=== PATIENT | male | born 1985 | race Hispanic/Latino ===

== ENCOUNTER 2018-04-07 19:34 | Emergency (ER) | payer BC ==
[2018-04-07 19:42] VITALS: BMI 23.7
[2018-04-07 19:45] VITALS: RESP 18
--- NOTE | 2018-04-07 20:11 | ED PDOC ---
Arrival/HPI <Colton Tate - Last Filed: 04/07/18 21:44> - General Historian: Patient <Kandis Linder - Last Filed: 04/07/18 21:45> - General Chief Complaint: Finger,Hand,&Wrist Time Seen by Provider: 04/07/18 19:45 - History of Present Illness Narrative History of Present Illness (Text): 04/07/18 20:04 Pt is a 33 yo M with no significant Pmhx who presents with a crush injury to the left 5th digit that occured about 30 mins ago. Pt states that he was at the EMS station and was exchanging O2 canisters, when one slipped and fell on his left 5th digit. He states that after it fell, he removed his hand from under the O2 canister and saw that his finger was bleeding. He cleaned the wound with normal saline and wrapped it and presented to the Emergency department. He currently states that pain is a 3/10 non-radiating and that the wound has now since stopped bleeding. He is able to move the digit and has no pain proximal to the distal DIP joint on the left 5th finger. He has no numbness proximal to the DIP joint on same finger. Past medical history: None Pshx: None Medications: None Allergies: NKDA Social Hx: No tobacco use or hx, social drinker, no illicit drug use Family Hx: Denies (Kandis Linder) Past Medical History - Psychiatric Hx Substance Use: No - Anesthesia Hx Anesthesia: No <Kandis Linder - Last Filed: 04/07/18 21:45> Family/Social History Family/Social History: No Known Family HX Smoking Status: Never Smoked Hx Alcohol Use: Yes Frequency of alcohol use: Socially Hx Substance Use: No <Kandis Linder - Last Filed: 04/07/18 21:45> Allergies/Home Meds <LeaColton - Last Filed: 04/07/18 21:44> <Kandis Linder - Last Filed: 04/07/18 21:45> Allergies/Adverse Reactions: Allergies No Known Allergies Allergy (Verified 04/07/18 19:42) Home Medications: Home Meds Medication Instructions Recorded Confirmed No Known Home Med 04/07/18 04/07/18 Review of Systems - Physician Review All systems were reviewed & negative as marked: Yes - Review of Systems Constitutional: Normal. absent: Fatigue Respiratory: Normal. absent: Cough, Wheezing Cardiovascular: Normal. absent: Chest Pain, Palpitations Gastrointestinal: Normal. absent: Abdominal Pain, Stool Changes, Constipation Musculoskeletal: Normal Skin: Laceration Neurological: Normal Psychiatric: Normal <Kandis Linder - Last Filed: 04/07/18 21:45> Physical Exam Temperature: Afebrile Blood Pressure: Normal Pulse: Tachycardic Respiratory Rate: Normal Appearance: Positive for: Well-Appearing, Non-Toxic, Comfortable Pain Distress: Mild (Rated 3/10) Mental Status: Positive for: Alert and Oriented X 3 - Systems Exam Head: Present: Atraumatic, Normocephalic Pupils: Present: PERRL Extroacular Muscles: Present: EOMI Conjunctiva: Present: Normal Mouth: Present: Moist Mucous Membranes Respiratory/Chest: Present: Clear to Auscultation, Good Air Exchange. No: Respiratory Distress, Accessory Muscle Use, Wheezes, Rhonchi Cardiovascular: Present: Regular Rate and Rhythm, Normal S1, S2. No: Murmurs, Irregular Rhythm Abdomen: Present: Normal Bowel Sounds. No: Tenderness, Distention, Peritoneal Signs Upper Extremity: Present: Normal ROM, Swelling, Erythema (Localized to the L 5th digit. Also has 1/2 cm laceration present on volar pad of L 5th digit.), Neurovascularly Intact <Kandis Linder - Last Filed: 04/07/18 21:45> Vital Signs Pulse Resp Pulse Ox 04/07/18 19:42 108 H 18 98 Medical Decision Making <Colton Tate - Last Filed: 04/07/18 21:44> <Kandis Linder - Last Filed: 04/07/18 21:45> ED Course and Treatment: Impression: Pt seen and evaluated with medical driver. Pt states an oxygen tank fell on to his left 5th digit and sustained a laceration to the area. Aware and agree with HPI, clinical findings, plan, and management. Plan: -- XR Left Hand --Reassess and disposition. Laceration performed by medical driver under my supervision. PROCEDURE: LACERATION REPAIR Performed by the emergency provider Location: left 5th digit Length: 0.5 cm Description: clean wound edges, no foreign bodies Distal CMS: Normal. No deficits. Neurovascularly intact. Anesthesia: Lidocaine 1% Preparation: The wound was cleaned with NS and Bet[place]ne. The area was prepped and draped in the usual sterile fashion. Exploration: The wound was explored and no foreign bodies were found. Procedure: The wound was closed with 6-0 nylon. There was good approximation. In total, 3 stitches were used. Post-Procedure: Good closure and hemostasis. The patient tolerated the procedure well and there were no complications. CSM remains intact. Post procedure dressing applied. (Colton Tate) - RAD Interpretation Narrative RAD Interpretations (Text): 04/07/18 20:18 L hand XR: no acute process 04/07/18 21:23 (Kandis Linder) Radiology Orders: 04/07/18 19:46 HAND LEFT 5TH DIGIT (FINGER) [RAD] Stat - Medication Orders Current Medication Orders: Discontinued Medications Lidocaine HCl (Lidocaine 1% 5 Ml) 20 mg IJ STAT STA Stop: 04/07/18 20:23 Last Admin: 04/07/18 20:37 Dose: Not Given Tetanus/Reduced Diphtheria/Acell Pertussis (Boostrix Vaccine Inj) 0.5 ml IM .ONCE ONE Stop: 04/07/18 20:20 Last Admin: 04/07/18 20:37 Dose: 0.5 ml Disposition/Present on Arrival - Present on Arrival Any Indicators Present on Arrival: No - Disposition Have Diagnosis and Disposition been Completed?: Yes Disposition Time: 21:04 Patient Plan: Discharge <Colton Tate - Last Filed: 04/07/18 21:44> - Present on Arrival History of DVT/PE: No History of Uncontrolled Diabetes: No Urinary Catheter: No History of Decub. Ulcer: No History Surgical Site Infection Following: None <Kandis Linder - Last Filed: 04/07/18 21:45> - Disposition Diagnosis: Finger injury, Finger laceration Patient Problems: Current Active Problems Problem Status Onset Finger injury Acute Finger laceration Acute Condition: GOOD Discharge Instructions (ExitCare): Laceration Repair With Stitches (DC) Additional Instructions: Keep wound clean and dry/follow up with your doctor in 5-7 days for suture removal Referrals: PCP,NO [Primary Care Provider] - Follow up with primary Forms: [employer] (Persian), WORK NOTE
[2018-04-07] MEDS ORDERED: TDAP Vaccine 0.5 mL Syr IM ONE (20:19)
[2018-04-07] MEDS ORDERED: Lidocaine 1% 5ml Abboject IJ STA (20:22)
[2018-04-07 23:44] VITALS: BP 122/65; PULSE 98; O2SAT 100
--- NOTE | 2018-04-08 09:26 | RAD ---
Date of service: 04/07/2018 PROCEDURE: Left small finger radiographs. HISTORY: Crush injury to finger COMPARISON: None. TECHNIQUE: AP radiograph of the left hand, as well as spot oblique and lateral images of left small finger were obtained. FINDINGS: LEFT SMALL FINGER: Left small finger normal, without fracture of focal lesion. Remainder of the left hand (as seen on the AP view) is grossly unremarkable. JOINTS: Normal. SOFT TISSUES: Normal. OTHER FINDINGS: None. IMPRESSION: Normal left small finger radiographs.
== END 2018-04-07 21:17 | disposition home or self-care (01) ==
LOC: ED 19:34
DX: S61.217A Laceration without foreign body of left little finger without damage to nail, initial encounter (principal); W01.0XXA Fall on same level from slipping, tripping and stumbling without subsequent striking against object, initial encounter; Z23 Encounter for immunization